=== PATIENT | male | born 1975 | race African-American/Black ===

== ENCOUNTER 2024-07-16 12:43 | Observation (INO) | payer OTHER, SELFPAY ==
[2024-07-16] VITALS (18 sets, daily range): BP systolic 144–191; BP diastolic 76–128
--- NOTE | 2024-07-16 08:48 | ED.GENMED ---
History of Present Illness
General
Chief Complaint: Abdominal Symptoms
Source: patient
Exam Limitations: none
Time Seen by Provider: 07/16/24 08:31
Nursing documentation reviewed up to this point in time: agreed with
History of Present Illness
History of Present Illness:
Patient presents to ED secondary to sudden onset of abdominal pain, shortly after having breakfast at home yesterday morning, consisting of eggs and hermosillo. Since then, patient has had vomiting episodes associated with ongoing pain. Denies
diarrhea. Denies trauma. Abdominal pain described as sharp, diffuse, more right-sided, without any alleviating or exacerbating factors. Although, patient states that when he lays flat, he does feel little bit better. Denies previous history of
similar symptoms. Denies fever or chills. Reports loss of appetite. Patient otherwise is healthy, without any significant past with history. Deny recent travel. Denies sick contact.
Review of Systems
Review of Systems
Allergies reviewed?: Yes
All Other Systems: ROS reviewed and negative except as documented in HPI and ROS
Constitutional: Reports no symptoms; Denies fever or chills
ABD/GI: Reports abdominal pain, nausea and vomiting; Denies diarrhea
Musculoskeletal: Reports no symptoms
Skin: Reports no symptoms
Neurological: Reports no symptoms
Phy Exam
Physical Exam
Physical Exam:
Physical Exam
General: no apparent distress, not acutely ill. afebrile
Head: nc/at. eomi
Neck: supple. normal range of motion
Abdomen: normal bowel sounds. mild distention with moderate RLQ tenderness to palpation with mild guarding
Neuro: alert and oriented. no focal neurological deficits
Skin: no rash
Psychiatric: well kept. interactive and cooperative
Extremities: no edema. no calf tenderness.
Course
Orders/Labs/Results
Orders:
Orders
07/16/24 08:43
CT Abd/pelvis W Iv Cont Urgent
Comment:
Reason For Exam: RLQ pain
HYDROmorphone [Dilaudid] 1 mg IV NOW STA
Ondansetron Injectable [Zofran] 4 mg IV NOW STA
07/16/24 08:44
0.9% Sodium Chloride 500 ml [Nss] 500 ml IV BOLUS
07/16/24 08:48
Complete Blood Count/With Diff Urgent
Comprehensive Metabolic Panel Urgent
Magnesium Urgent
07/16/24 12:00
Piperacillin/Tazo 2.25 Gram [Zosyn] 2.25 grams in 50 ml IV Q6H
Piperacillin/Tazo 3.375 Gram [Zosyn] 3.375 gram in 50 ml IV NOW
07/16/24 12:06
Admit/Transfer Patient As Directed
Co-Sign Provider:
Level of Care: Observation services
Assign to:: Medical/Surgical
Physician / Group: Chad Marinelli
Diagnosis: acute appendicitis
Reason for Overnight Stay: Require IV med- infection
07/16/24 12:07
PRN Pain Medication Management As Directed
May give lesser potent ordered pain med per pt: Yes
preference::
Protocol:: Medication orders for pain may be administered in a
manner that supports deferring to patient preference
when the pt is:
- Requesting an ordered lesser potent pain medication.
Least to most potent pain medications are defined
as: acetaminophen < NSAID < tramadol < opioids
(morphine, oxycodone, hydromorphone).
- Requesting a lesser dose of the same medication IF
ORDERED.
- Requesting a less intrusive route of administration
if both routes are prescribed by the provider (PO <
IV).
07/16/24 12:10
Code Status As Directed
Resuscitation Status: Full Code
07/16/24 12:27
Fentanyl Citrate/Pf [Sublimaze] 25 mcg IV PACU-Q5MPRN PRN
Fentanyl Citrate/Pf [Sublimaze] 50 mcg IV PACU-Q5MPRN PRN
Meperidine [Demerol] 12.5 mg IV PACU-Q5MPRN PRN
Ondansetron Injectable [Zofran] 4 mg IV PACU-ONCEPRN PRN
Prochlorperazine [Compazine] 5 mg IV PACU-ONCEPRN PRN
Notify MD As Directed
Notify physician if: for SDS patients with known or suspected sleep obstructive sleep apnea, monitor in the
PACU.
Notify MD for any apneic/desaturation episodes
O2 Therapy [RESP] Urgent
Titrate/Wean O2 to maintain O2 sat greater than (%): 92
Special Instructions: -Provide supplemental oxygen to achieve O2 sat of 92% or greater.
-After 15 min, may wean O2 and discontinue if patient is able to maintain O2 sat of 92%
or greater during recovery period.
If patient is a discharge home, without oxygen therapy, notify anestheiologist if
unable to maintain O2 SAT of 92% or greater on room air for MD clearance.
07/16/24 12:30
HYDROmorphone [Dilaudid] 0.5 mg IV Q2HPRN PRN
HYDROmorphone [Dilaudid] 1 mg IV Q2HPRN PRN
07/16/24 15:35
0.9% Sodium Chloride 1000 ml [Nss] 1,000 ml IV 150 mls/hr
Ondansetron Injectable [Zofran] 4 mg IV Q6HPRN PRN
07/16/24 15:35
Activity As Directed
Activity Level: As Tolerated
Intake/ Output As Directed
Frequency: Per unit guidelines
Pneumatic Compression Sleeves As Directed
Type: Knee high
Vital Signs As Directed
Frequency: Per unit guidelines
DX Deep Vein Thrombosis Video Routine
07/16/24 18:00
Enoxaparin Sodium [Lovenox] 40 mg SC QPM
Abnormal Lab Results
07/16/24
08:48
WBC 12.8 H 10^3/uL
(4.8-10.8)
MPV 10.6 H fL
(7.4-10.4)
Abs Immat Gran (auto) 0.1 H 10^3/uL
(0-0.05)
Absolute Neuts (auto) 11.1 H 10^3/uL
(1.4-6.5)
Absolute Lymphs (auto) 0.9 L 10^3/uL
(1.2-3.4)
Absolute Monos (auto) 0.7 H 10^3/uL
(0.1-0.6)
Neutrophils % 86.5 H %
(42.2-75.2)
Lymphocytes % 7.0 L %
(20.5-51.1)
Creatinine 1.4 H mg/dL
(0.7-1.3)
Glucose 127 H mg/dl
(70-99)
07/16/24 08:48
07/16/24 08:48
Vital Signs
Initial and Last Documented VS:
Initial Vital Signs
Temp Pulse Resp Pulse Ox
98.1 F 64 18 99
07/16/24 07:58 07/16/24 07:58 07/16/24 07:58 07/16/24 07:58
Last Documented Vital Signs
Temp Pulse Resp BP Pulse Ox
97.2 F 80 8 147/82 91
07/16/24 14:35 07/16/24 15:30 07/16/24 15:30 07/16/24 15:30 07/16/24 15:30
MDM/Problems Addressed
MDM/Problems Addressed:
History, exam, and CT scan consistent with acute appendicitis, without evidence of perforation or abscess. Patient reports mild improvement in symptoms after treatment. Patient remains afebrile and hemodynamically stable.
Dr. Marinelli, on-call surgery, contacted via [place] text.
Will proceed to OR after surgical evaluation in ED.
*Critical Care Note
Total Time (30-74mins, 75-104mins- exclusive of procedures): Not Applicable
ED Attending Note
-
Portions of this chart may have been created with voice recognition software.� Occasional wrong word or��sound alike� substitutions may have occurred due to the inherent limitations of voice recognition software.
Discharge Plan
Departure
Patient Disposition: Admit
Date of Disposition: 07/16/24
Time of Disposition: 10:16
Presentation/result/management discussed w/ accepting MD/DO:
Discharge Problem:
Acute appendicitis
Interventions
Interventions:
*Risk Screen - Suicide Last Done: 07/16/24 07:58
*General Assessment Last Done: 07/16/24 08:53
*Neglect/Abuse Screening Last Done: 07/16/24 07:58
ED- Fall Risk Assessment Last Done: 07/16/24 11:24
*ED COVID-19 Vaccine History Last Done: 07/16/24 08:53
*Nursing Disposition Last Done: 07/16/24 12:51
EG-Rdzrdx-Qdklwouswk Assessment Last Done: 07/16/24 08:53
Discharge Date and Time
Discharge Date/Time: 07/16/24 13:16
[2024-07-16] MEDS: NSS 500 IV (08:50)
[2024-07-16] MEDS: DILAUDID 1 MG IV ×2 (08:50→12:32)
[2024-07-16] MEDS: ZOFRAN 4 MG IV (08:51)
[2024-07-16 08:58] LABS: % Basophils 0.2 % (0-2); % Eosinophils 0.1 % (0-6); % Immature Granulocytes 0.5 % (0-0.5); % Monocytes 5.7 % (1.7-9.3); % Neutrophils 86.5 % (42.2-75.2); Absolute Immature Granulocytes 0.1 10^3/uL (0-0.05); Absolute Lymphocytes 0.9 10^3/uL (1.2-3.4); Absolute Monocytes 0.7 10^3/uL (0.1-0.6); Absolute Neutrophils 11.1 10^3/uL (1.4-6.5); Hematocrit 46.2 % (39.0-52.0); Mean Corp Hgb Conc. 34.6 g/dL (33.0-37.0); Mean Corpuscular Hgb 28.7 pg (27.0-31.0); Mean Corpuscular Volume 82.9 fL (80.0-94.0); Mean Platelet Volume 10.6 fL (7.4-10.4); Nucleated Red Blood Cells % 0 % (-); Platelet Count 264 10^3/uL (130-400); Red Blood Cell Count 5.57 10^6/uL (4.70-6.10); White Blood Cell Count 12.8 10^3/uL (4.8-10.8)
[2024-07-16 09:11] LABS: ALT (SGPT) 28 U/L (0-50); AST (SGOT) 24 U/L (17-59); Albumin 4.4 g/dl (3.5-5.0); Alkaline Phosphatase 63 U/L (38-126); Blood Urea Nitrogen 18 mg/dl (9-20); Calcium 9.5 mg/dl (8.4-10.2); Carbon Dioxide 25 mmol/L (22-30); Chloride 102 mmol/L (98-107); Glucose 127 mg/dl (70-99); Magnesium 1.9 mg/dl (1.6-2.3); Potassium 4.1 mmol/L (3.5-5.1); Sodium 138 mmol/L (135-145); Total Bilirubin 1.2 mg/dl (0.2-1.3); Total Protein 7.4 g/dl (6.3-8.2); eGFR > 60.00
--- NOTE | 2024-07-16 10:58 | CON.GS ---
Addendum entered and electronically signed by Chad Marinelli MD 07/16/24 12:17:
Patient seen and examined with resident. Agree with documented H&P with additions noted here.
HPI: 49-year-old male with acute onset of abdominal pain yesterday afternoon that has increased in severity and localized to right lower quadrant. Worse with movement. Nausea and vomiting overnight with anorexia. No associated symptoms. Last
bowel movement yesterday normal.
Past medical history only notable for hypertension but he is currently not on medications (previously prescribed amlodipine)
No past abdominal surgical history
AFVSS
NAD AAOx3 but acutely ill-appearing
ABD: Soft, nondistended, tenderness palpation localized in the right lower quadrant with rebound at McBurney's point. Positive Rovsing sign
CT abdomen/pelvis imaging personally reviewed. Tubular blind-ending fluid-filled structure in right lower quadrant consistent with appendix that is dilated with surrounding inflammatory changes. No free fluid, no organizing abscess or collection.
No additional notable acute or chronic findings.
Assessment: 49-year-old male with acute appendicitis.
Reviewed with patient and his significant other at bedside history, examination and CT imaging consistent with acute appendicitis. Discussed both operative and nonoperative management options and associated risks/benefits of approaches. Patient is
in agreement to proceed with appendectomy.
Laparoscopic appendectomy reviewed in detail with the patient. Discussed operative technique utilizing diagrams or drawings, alternative management options, benefits and potential risks such as but not limited to bleeding, infectious or wound
healing complications, iatrogenic injury to surrounding viscera. Discussed the typical postoperative recovery pending operative findings.
Any of the patient's concerns or questions were fully addressed and informed consent was obtained.
Plan: OR for laparoscopic appendectomy.
Empiric antibiotic coverage with Zosyn.
Nothing by mouth, IV fluid hydration and supportive care awaiting operative room availability.
SCDs for DVT prophylaxis
Original Note:
Consultation
-
Date/Time Consultation Requested: 07-16-2024/8:48 am
Date/Time Consultation Performed: 07/16/2024/ 11:00 Am
Requesting Provider: Colin Hutton
Performing Provider: Chad Marinelli
Reason for Consultation: Acute Appendicitis
Medical History
-
Chief Complaint: abdominal pain
History of Present Illness:
49 year old male with a past medical history of HTN who presents to the emergency room with an acute onset of severe abdominal pain since yesterday afternoon, localized to the right lower quadrant, sharp and stabbing in quality, preceded one hour
before by meal of hermosillo and eggs. Associated with 6 episodes of non bloody vomiting and loss of appetite. Had a similar episode years ago where he felt a similar type of pain but that subsided by itself and he was not admitted for this pain nor did
he take any medications. No fever, chills, headache, diarrhea, constipation, hematochezia.
Past Medical History
Past Medical History: HTN
Past Surgical History: Other (Laparoscopic Surgery lower back, Surgery on hip when he was 13 years old)
Social History
Tobacco: Other (Occasional cigar use)
Alcohol: Occasional
Drug: None
Personal:
Living: With Family
Employment: Employed
Family History
Family History: Reviewed & Not Pertinent
Allergies / Home Medications
Allergy/AdvReac Type Severity Reaction Status Date / Time
No Known Allergies Allergy Unverified 07/16/24 08:02
Review of Systems
-
History Source: Patient
Constitutional: Fever and Chills
Respiratory: Cough and Trouble Breathing
Cardiac: Chest Pain
Abdomen/GI: Abdominal Pain, Vomiting, Diarrhea, Constipated, Bloody Stools and Pain
: Dysuria and Flank Pain
A 10 point review of systems was completed, and was negative except as per HPI.
Physical Exam
Vital Signs
Temp Pulse Resp BP Pulse Ox
98.1 F 77 16 171/99 95
07/16/24 07:58 07/16/24 10:17 07/16/24 10:17 07/16/24 10:17 07/16/24 10:17
07/15/24 07/16/24 07/17/24
06:59 06:59 06:59
Actual Weight 147 kg
Lab Results
07/16/24 08:48
07/16/24 08:48
WBC 12.8 10^3/uL (4.8-10.8) H 07/16/24 08:48
Hgb 16.0 g/dL (13.0-18.0) 07/16/24 08:48
Hct 46.2 % (39.0-52.0) 07/16/24 08:48
Plt Count 264 10^3/uL (130-400) 07/16/24 08:48
Abs Immat Gran (auto) 0.1 10^3/uL (0-0.05) H 07/16/24 08:48
Neutrophils % 86.5 % (42.2-75.2) H 07/16/24 08:48
Physical Exam
General: Well Developed, Well Nourished and Pain
GI: Tender (Right lower quadrant of abdomen tenderness with rebound tenderness)
Psych: Agitated
Data Reviewed
-
CT Scan: Image Personally Visualized and interpreted, Report Reviewed by me and Discussed with Physician
Labs: Labs Reviewed by me, Discussed with Physician and Discussed with Nurse
Assessment / Plan
-
# acute appendicitis:
- Ct scan shows acute appendicitis
- Physical exam of abdomen is positive for tenderness/ rebound tenderness at McBurney point
- Continue patient on NPO
- Continue IVF
- Continue current pain medication
- Start IV zosyn
- Trend labs
- Explained to patient the various treatment options which are Antibiotics vs Laparoscopic removal of appendix. Patient understands and chose surgical option. Explained to pt descrption of procedure, the risks, benefits, and post procedural
complications.
- Planning to do surgery today
[2024-07-16] MEDS: ZOSYN 50 IV ×3 (12:20→23:08)
--- NOTE | 2024-07-16 13:06 | W.SUR.PREOP ---
Pre-Operative Surgical Note
-
I have examined this patient prior to the performance of the scheduled procedure.
The patient's condition is unchanged from the time of the current History and
Physical and the patient is able to undergo the scheduled procedure.
--- NOTE | 2024-07-16 14:24 | W.IMMPOSTOP ---
Addendum entered and electronically signed by Chad Marinelli MD 07/16/24 14:35:
#[id number]
Original Note:
Surgical Immed Post Op Note
-
Primary Surgeon: Yves
Assisting Surgeon: None
Pre-op Diagnosis: Acute appendicitis
Post-op Diagnosis: Acute appendicitis
Procedure Performed: Laparoscopic appendectomy
Anesthesia Type: GETA +0.25% Marcaine with epi
Specimen / Cultures: Appendix
Estimated Blood Loss: 6 mL
Complications: None immediate
Operative Findings: Acutely inflamed, distended appendix with some exudate and free fluid. No purulence, no perforation, no abscess, no disruption of appendix with appendectomy.
Plan: Continue Zosyn overnight and DC home on total postoperative course 5 days antibiotics (Augmentin)
Clear liquids and advance diet as tolerated
Patient significant other updated in waiting area
[2024-07-16] MEDS: NSS 1000 IV ×2 (15:42→23:08)
--- NOTE | 2024-07-16 16:06 | PTCARENOTE ---
Addendum entered by Bijal Hopkins RN 07/16/24 16:10:
Pt instructed on plan of care, Pt and verbalized understanding of instructions, Call keenan is within reach.
Original Note:
Pt received from the PACU via bed. Transport was w/o incident. Pt is AAOx3, HRR, lungs are clear, abd round, sl distended, tender, w/ 4 Lap sites well approximated with surgi glue, Pt denies nausea or pain at this time. VSS, BP sl elevated at
169/86, HR 76, resp.16, pulse ox 96%on 2Lvia nc.
[2024-07-16] MEDS: LOVENOX 40 MG SC (18:34)
[2024-07-16] MEDS: APRESOLINE 5 MG IV (18:35)
[2024-07-16] MEDS: ROXICODONE 5 MG PO (18:36)
[2024-07-16] MEDS: MYLICON 80 MG PO (19:58)
[2024-07-16] MEDS: TYLENOL 1000 MG PO (19:58)
[2024-07-16] MEDS: MOTRIN 200 MG PO (21:47)
[2024-07-17 03:25] VITALS: BP 149/96
[2024-07-17] MEDS: ZOSYN 50 IV (05:36)
[2024-07-17] MEDS: MOTRIN 200 MG PO (06:30)
[2024-07-17 07:20] VITALS: BP 154/100
--- NOTE | 2024-07-17 08:13 | W.PN.GS2 ---
Today's Communication / Plan
-
- plan to discharge patient today
- Discharge on oral antibiotics 5 days Augmentin
Assessment / Plan
-
# acute appendicitis:
- Post op day 1
- labs show increased wbc count 12.8 most probably reactive leucocytosis,
- Continue patient on low residue diet with a transition to regular diet on discharge
- Inform patient on post surgical precautions like taking frequent rest and not lifting anything above 15 lbs
- Continue IVF
- Continue tramadol
- Continue IV Zosyn and discharge on oral antibiotics
- Trend labs
- PCP referral on discharge to assess elevated blood glucose (127) and elevated creatinine count (1.4) outpatient
Subjective Data
-
Date of Service: July 17, 2024
49 year old male post appendectomy day 1 with a past medical history of HTN. Patient reports feeling pain at the surgical incision site located in the umbilical region. No fever, chills, headache, diarrhea, constipation, hematochezia. Currently on a
low residue diet.
Objective Data
-
Intake and Output
07/16/24 07/17/24 07/18/24
06:59 06:59 06:59
Intake Total 2307 / 2307
Output Total 700 / 700
Balance 1607 / 1607
Intake:
Oral fluids 682 / 682
IV fluids (Total) 1625 / 1625
NS 125 / 125
Output:
Urine, Voided 700 / 700
Other:
Number of approximated MODERATE 1
amounts of urine
Vital Signs
Temp Pulse Resp BP Pulse Ox
98.5 F 72 16 154/100 96
07/17/24 07:20 07/17/24 07:20 07/17/24 07:20 07/17/24 07:20 07/17/24 07:20
Lab Results
07/16/24 08:48
07/16/24 08:48
Calcium 9.5 mg/dl (8.4-10.2) 07/16/24 08:48
Magnesium 1.9 mg/dl (1.6-2.3) 07/16/24 08:48
Total Bilirubin 1.2 mg/dl (0.2-1.3) 07/16/24 08:48
AST 24 U/L (17-59) 07/16/24 08:48
ALT 28 U/L (0-50) 07/16/24 08:48
Alkaline Phosphatase 63 U/L (38-126) 07/16/24 08:48
Total Protein 7.4 g/dl (6.3-8.2) 07/16/24 08:48
Albumin 4.4 g/dl (3.5-5.0) 07/16/24 08:48
Physical Exam
-
General: Well Developed, Well Nourished and Pain
GI: Slight discomfort on pressing incision nearest to the umbilicus, non tender, non distended, surgical incision sites look clean dry
[2024-07-17] MEDS: NSS IV (09:51)
[2024-07-17] MEDS: ULTRAM 50 MG PO (09:56)
--- NOTE | 2024-07-17 10:51 | W.DS.TRANS ---
DC Summary - [facility]
-
Discharge Instructions:
Discharge Diagnosis/Procedures Acute appendicitis. Laparoscopic appendectomy
Diet As tolerated,Regular
Additional Diets Smaller meals initially after surgery as
abdominal bloating and distention may be common
for the first few days
Activity No strenuous activity
Additional Activity No lifting over approximately 20 pounds for 3
weeks postoperatively
Driving Restrictions No driving for 24 hours
Bathing Restrictions OK to Shower
Wound Care Glue at surgical sites typically peels off in 2
to 3 weeks
Instructions:
Stand-Alone Forms:
Changes to Home Medications: No
Discharge Medications:
DC Medications w/original date entered in [facility]
Complex Mushroom Powder 1 packet PO DAILY 07/16/24
aspirin 500 mg-sod bicarb 1,985 mg-citric acid 1,000 mg efferv tablet (Raquel-Oakes Extra Strength) 1 ea PO DAILYPRN PRN upset stomach 07/16/24
bismuth subsalicylate 262 mg/15 mL oral suspension (Pepto-Bismol) 262 mg PO DAILYPRN PRN stomach issues 07/16/24
esomeprazole magnesium 20 mg capsule,delayed release (Nexium) 20 mg PO PRN PRN gerd 07/16/24
acetaminophen 325 mg tablet 650 mg (2 x 325 mg) PO Q4HPRN PRN mild pain #1 tab 07/17/24
amoxicillin 875 mg-potassium clavulanate 125 mg tablet 1 tab PO Q12 antibiotic #10 tabs 07/17/24
tramadol 50 mg tablet 25 - 50 mg (0.5 - 1 x 50 mg) PO Q6HPRN PRN severe pain/breakthrough pain #5 tabs 07/17/24
Home Medication Changes
Pending Results: No
--- NOTE | 2024-07-17 11:06 | CM ---
Met with pt and his SO at bedside
Pt reports he lives in a 3 story home with his SO; 4 steps to enter, 10 steps to 2nd fl, 1/2 bath on FF
Independent, employed FT, driving
DME - none
SNF/HH - denies past hx
Has ride home when discharged
PCP - [facility]
Pharm - [facility]
Plan - anticipate home no needs
[2024-07-17 11:15] VITALS: BP 161/101
[2024-07-17] MEDS: AFLURIA (36 mos+) 2024-2025 FORMULA 0.5 ML IM (12:02)
== END 2024-07-17 12:51 | disposition home or self-care (01) ==
LOC: 2 SOUTH 12:43
PROVIDERS: ADMITTING PHYSICIAN Surgery; EMERGENCY PHYSICIAN Emergency Medicine; FAMILY PHYSICIAN Family Medicine
DX: K35.80 Unspecified acute appendicitis (principal); R10.31 Right lower quadrant pain; R11.2 Nausea with vomiting, unspecified; R63.0 Anorexia; I10 Essential (primary) hypertension; G47.33 Obstructive sleep apnea (adult) (pediatric); K57.30 Diverticulosis of large intestine without perforation or abscess without bleeding; D72.829 Elevated white blood cell count, unspecified; Z23 Encounter for immunization
CPT/HCPCS: 44970; 88304; 74177; 80053; 83735; 85025; 90686; 96361; 96374; 96375; 99285; G0008; G0378; Q9967